=== PATIENT | male | born 1940 | race Two or more races ===

== ENCOUNTER 2016-11-13 17:59 | Emergency (ER) | payer MEDICAID ==
[~2016-11-13] VITALS: Ht 175.3 cm; Wt 72.1 kg
[2016-11-13 18:23] VITALS: BP 151/71
== END 2016-11-13 19:41 | disposition home or self-care (01) ==
LOC: ER 18:01
DX: G51.0 Bell's palsy (principal); I10 Essential (primary) hypertension; E11.9 Type 2 diabetes mellitus without complications
CPT/HCPCS: 82962; 99283; A4606; Z7610